=== PATIENT | female | born 1965 | race Caucasian/White ===

== ENCOUNTER 2016-07-25 09:01 | Inpatient (IN) | payer MEDICAID ==
[~2016-07-25] VITALS: Ht 157.5 cm; Wt 60.0 kg
[2016-07-25 09:39] LABS: BASOPHIL % 0.6 % (0-2); PLATELET COUNT 260 x10^3mcL (130-400)
[2016-07-25 09:48] LABS: RED CELL DISTRIBUTION WIDTH 15.5 % (11.5-14.5)
[2016-07-25 10:11] LABS: ALBUMIN 3.7 g/dL (3.4-5.0); BILIRUBIN TOTAL 0.53 mg/dL (0.20-1.00); CALCIUM 8.6 mg/dL (8.5-10.1); CARBON DIOXIDE 27.9 mmol/L (21-32); MAGNESIUM 2.5 mg/dL (1.8-2.4); TOTAL PROTEIN, SERUM 7.7 g/dL (6.4-8.2)
[2016-07-25 10:39] LABS: CREATININE SERUM 8.6 mg/dL (0.6-1.0)
[2016-07-25 10:47] LABS: microscopic required? YES
[2016-07-25 10:48] LABS: urine erythrocyte TRACE (NEGATIVE)
[2016-07-25 12:33] LABS: T3 TOTAL 0.93 ng/mL
[2016-07-25 13:28] VITALS: BP 173/79
[2016-07-25 13:28] LABS: FREE T4 1.11 ng/dL (0.76-1.46); T4(THYROXINE) 8.6 ug/dL (4.7-13.3)
[2016-07-25 14:05] LABS: CHOLESTEROL/HDL RATIO 4.1
[2016-07-25 15:44] LABS: AMPHETAMINE QUAL UR NONE DETECTED (NEG <=1000)
[2016-07-25 18:45] VITALS: BP 172/72
[2016-07-25 18:59] LABS: CALCIUM 9.1 mg/dL (8.5-10.1); CARBON DIOXIDE 25.9 mmol/L (21-32); MAGNESIUM 1.7 mg/dL (1.8-2.4)
[2016-07-25 19:01] LABS: CREATININE SERUM 4.8 mg/dL (0.6-1.0)
[2016-07-25 20:56] VITALS: BP 136/66
[2016-07-26 05:20] VITALS: BP 158/73
[2016-07-26 06:17] LABS: BASOPHIL % 0.6 % (0-2); PLATELET COUNT 238 x10^3mcL (130-400)
[2016-07-26 06:35] LABS: CALCIUM 8.7 mg/dL (8.5-10.1); CARBON DIOXIDE 28.3 mmol/L (21-32); MAGNESIUM 1.9 mg/dL (1.8-2.4); PHOSPHOROUS 6.9 mg/dL (2.5-4.9); POTASSIUM SERUM 4.7 mmol/L (3.5-5.1)
[2016-07-26 06:37] LABS: RED CELL DISTRIBUTION WIDTH 15.8 % (11.5-14.5)
[2016-07-26 10:04] VITALS: BP 155/63
[2016-07-26 16:08] VITALS: BP 152/63
== END 2016-07-26 17:08 | disposition home or self-care (01) | DRG 422 ==
LOC: ED 09:01 → DU 11:11
PROVIDERS: Emergency Medicine; ADMIT Family Medicine
DX: E87.5 Hyperkalemia (principal); E86.0 Dehydration; N17.0 Acute kidney failure with tubular necrosis; E87.2 Acidosis; I12.0 Hypertensive chronic kidney disease with stage 5 chronic kidney disease or end stage renal disease; N18.6 End stage renal disease; M79.605 Pain in left leg; M79.604 Pain in right leg; M79.642 Pain in left hand; M79.641 Pain in right hand; E83.39 Other disorders of phosphorus metabolism; E78.2 Mixed hyperlipidemia; Z99.2 Dependence on renal dialysis
CPT/HCPCS: 82962; 83880; 84439; J1815; J1940; J3010; J3490; J7050; J7613; Q0092

== ENCOUNTER 2017-02-03 15:42 | Inpatient (IN) | payer MEDICAID ==
[~2017-02-03] VITALS: Ht 152.4 cm; Wt 56.9 kg
[2017-02-03 17:19] LABS: BASOPHIL % 0.8 % (0-2); PLATELET COUNT 260 x10^3mcL (130-400)
[2017-02-03 17:20] LABS: RED CELL DISTRIBUTION WIDTH 16.5 % (11.5-14.5)
[2017-02-03 17:31] LABS: ALBUMIN 3.8 g/dL (3.4-5.0); BILIRUBIN TOTAL 0.75 mg/dL (0.20-1.00); CALCIUM 9.3 mg/dL (8.5-10.1); POTASSIUM SERUM 5.5 mmol/L (3.5-5.1); TOTAL PROTEIN, SERUM 7.9 g/dL (6.4-8.2)
[2017-02-03 17:49] LABS: CREATININE SERUM 8.5 mg/dL (0.6-1.0)
[2017-02-03 18:11] LABS: UA SPECIFIC GRAVITY 1.015 (1.005-1.035); microscopic required? YES; urine erythrocyte TRACE (NEGATIVE)
[2017-02-03] MEDS ORDERED: LANTUS SOLOS100 U/M1 SC (18:36)
[2017-02-03] MEDS ORDERED: PHOSPHATE ORAL45 ML (18:37)
[2017-02-03 19:55] LABS: CHOLESTEROL/HDL RATIO 3.7; MAGNESIUM 2.8 mg/dL (1.8-2.4); PHOSPHOROUS 5.2 mg/dL (2.5-4.9)
[2017-02-03 19:59] LABS: T3 TOTAL 0.83 ng/mL
[2017-02-03 20:02] VITALS: BP 170/81
[2017-02-03 20:20] LABS: FREE T4 1.25 ng/dL (0.76-1.46); FREE THYROXINE INDEX 3.6 ug/dL (1.4-4.5); T4(THYROXINE) 9.6 ug/dL (4.7-13.3)
[2017-02-04] VITALS (7 sets, daily range): BP systolic 114–176; BP diastolic 72–82
[2017-02-04 03:11] LABS: BASOPHIL % 0.6 % (0-2); PLATELET COUNT 217 x10^3mcL (130-400)
[2017-02-04 03:13] LABS: RED CELL DISTRIBUTION WIDTH 16.8 % (11.5-14.5)
[2017-02-04 03:43] LABS: CALCIUM 8.5 mg/dL (8.5-10.1); MAGNESIUM 2.9 mg/dL (1.8-2.4); PHOSPHOROUS 6.2 mg/dL (2.5-4.9)
[2017-02-04 03:55] LABS: POTASSIUM SERUM 6.5 mmol/L (3.5-5.1)
[2017-02-04 03:56] LABS: CREATININE SERUM 9.1 mg/dL (0.6-1.0)
[2017-02-05 04:58] VITALS: BP 148/64
[2017-02-05 06:31] LABS: CALCIUM 8.9 mg/dL (8.5-10.1); CARBON DIOXIDE 29.9 mmol/L (21-32); MAGNESIUM 2.1 mg/dL (1.8-2.4); PHOSPHOROUS 6.1 mg/dL (2.5-4.9); POTASSIUM SERUM 3.9 mmol/L (3.5-5.1)
[2017-02-05 06:33] LABS: CREATININE SERUM 5.8 mg/dL (0.6-1.0)
[2017-02-05 06:52] LABS: BASOPHIL % 0.8 % (0-2); PLATELET COUNT 217 x10^3mcL (130-400)
[2017-02-05 07:00] LABS: RED CELL DISTRIBUTION WIDTH 16.6 % (11.5-14.5)
[2017-02-05 09:41] VITALS: BP 168/76
[2017-02-05 13:39] VITALS: BP 149/72
[2017-02-05] MEDS ORDERED: LIPI10 PO (16:05)
[2017-02-05] MEDS ORDERED: ECO81 PO (16:06)
[2017-02-05] MEDS ORDERED: COL100 PO (16:08)
[2017-02-05] MEDS ORDERED: PRI20 PO (16:08)
[2017-02-05] MEDS ORDERED: NOR5 PO (16:22)
[2017-02-05] MEDS ORDERED: COLACE100 MG PO (16:28)
[2017-02-05] MEDS ORDERED: NORCO1 TA2 PO (16:29)
[2017-02-05 17:55] VITALS: BP 175/75
== END 2017-02-05 18:48 | disposition home or self-care (01) | DRG 241 ==
LOC: ED 15:42 → DU 18:51
PROVIDERS: Emergency Medicine; Family Medicine; Internal Medicine Gastroenterology; ADMIT Student in an Organized Health Care Education/Training Program
PROC: 0DB68ZX Excision of Stomach, Via Natural or Artificial Opening Endoscopic, Diagnostic (ICD-10-PCS; principal; 2017-02-05 10:30)
DX: K26.3 Acute duodenal ulcer without hemorrhage or perforation (principal); N17.0 Acute kidney failure with tubular necrosis; I50.43 Acute on chronic combined systolic (congestive) and diastolic (congestive) heart failure; I13.2 Hypertensive heart and chronic kidney disease with heart failure and with stage 5 chronic kidney disease, or end stage renal disease; N18.6 End stage renal disease; E11.22 Type 2 diabetes mellitus with diabetic chronic kidney disease; E11.51 Type 2 diabetes mellitus with diabetic peripheral angiopathy without gangrene; E83.41 Hypermagnesemia; E87.5 Hyperkalemia; E83.39 Other disorders of phosphorus metabolism; D63.1 Anemia in chronic kidney disease; Z79.4 Long term (current) use of insulin; Z99.2 Dependence on renal dialysis; Z68.24 Body mass index [BMI] 24.0-24.9, adult
CPT/HCPCS: 43235; 82962; 83880; 84439; 94150; J1200; J1610; J1815; J1885; J1940; J2250; J2310; J2405; J2765; J3010; J3490; J7030; J7620; Q0092